=== PATIENT | male | born 1995 | race Caucasian/White ===

== ENCOUNTER 2017-06-13 11:45 | Inpatient (IN) | payer OTHER ==
[2017-06-13 12:15] LABS: HEMOGLOBIN 16.7 g/dl (14.0-18.0); MEAN CORPUSCULAR HEMOGLOBIN 31.5 pg (27.0-33.0); MEAN CORPUSCULAR HGB CONC 33.4 g/dl (32.0-36.5); MEAN CORPUSCULAR VOLUME 94.2 fl (80.0-96.0); PLATELET COUNT, AUTOMATED 232 10^3/uL (150-450); RED BLOOD COUNT 5.31 10^6/uL (4.30-6.10); RED CELL DISTRIBUTION WIDTH 13.1 % (11.5-14.5); WHITE BLOOD COUNT 9.3 10^3/uL (4.0-10.0)
[2017-06-13 12:52] LABS: ALBUMIN 4.3 GM/DL (3.2-5.2); ALBUMIN/GLOBULIN RATIO 1.19 (1.00-1.93); ALKALINE PHOSPHATASE 90 U/L (45-117); ALT/SGPT 84 U/L (12-78); ANION GAP 6 MEQ/L (8-16); AST/SGOT 40 U/L (7-37); BILIRUBIN,DIRECT 0.2 MG/DL (0.0-0.2); BILIRUBIN,TOTAL 0.6 MG/DL (0.2-1.0); BLOOD UREA NITROGEN 16 MG/DL (7-18); CALCIUM LEVEL 9.7 MG/DL (8.5-10.1); CARBON DIOXIDE LEVEL 29 MEQ/L (21-32); CHLORIDE LEVEL 106 MEQ/L (98-107); CREATININE FOR GFR 1.21 MG/DL (0.70-1.30); ETHYL ALCOHOL (ETHANOL) 0.004 % (0.000-0.010); GLOMERULAR FILTRATION RATE > 60.0 (>60); GLUCOSE, FASTING 80 MG/DL (70-100); POTASSIUM SERUM 4.4 MEQ/L (3.5-5.1); SALICYLATE LEVEL < 1.7 MG/DL (5.0-30.0); SODIUM LEVEL 141 MEQ/L (136-145); TOTAL PROTEIN 7.9 GM/DL (6.4-8.2)
[2017-06-13 13:05] LABS: AMPHETAMINES LEVEL URINE NEGATIVE (NEGATIVE); BARBITURATES URINE NEGATIVE (NEGATIVE); BENZODIAZEPINES URINE NEGATIVE (NEGATIVE); CANNABINOIDS URINE NEGATIVE (NEGATIVE); COCAINE METABOLITE URINE NEGATIVE (NEGATIVE); METHADONE URINE NEGATIVE (NEGATIVE); OPIATES URINE NEGATIVE (NEGATIVE); PHENCYCLIDINE URINE NEGATIVE (NEGATIVE)
[2017-06-13 13:12] LABS: ACETAMINOPHEN LEVEL < 2.0 UG/ML (10.0-30.0)
[2017-06-13] MEDS ORDERED: MOM 30ML SUSPENSION UDC PO (16:30)
[2017-06-13] MEDS ORDERED: ACETAMINOPHEN TAB 650MG DOSE (2X325MG) PO (16:30)
[2017-06-13] MEDS ORDERED: MAALOX 30 ML SUSP *UDC PO (16:30)
[2017-06-14 10:13] LABS: ALBUMIN 4.4 GM/DL (3.2-5.2); ALBUMIN/GLOBULIN RATIO 1.29 (1.00-1.93); ALKALINE PHOSPHATASE 93 U/L (45-117); ALT/SGPT 88 U/L (12-78); ANION GAP 7 MEQ/L (8-16); AST/SGOT 41 U/L (7-37); BILIRUBIN,TOTAL 0.7 MG/DL (0.2-1.0); BLOOD UREA NITROGEN 16 MG/DL (7-18); CALCIUM LEVEL 9.4 MG/DL (8.5-10.1); CARBON DIOXIDE LEVEL 31 MEQ/L (21-32); CHLORIDE LEVEL 102 MEQ/L (98-107); CREATININE FOR GFR 1.37 MG/DL (0.70-1.30); GLOMERULAR FILTRATION RATE > 60.0 (>60); GLUCOSE, FASTING 124 MG/DL (70-100); POTASSIUM SERUM 4.6 MEQ/L (3.5-5.1); SODIUM LEVEL 140 MEQ/L (136-145); TOTAL PROTEIN 7.8 GM/DL (6.4-8.2)
[2017-06-14] MEDS ORDERED: OLANZapine ORAL DISINTEGRATING TAB 5MG PO (13:00)
[2017-06-14] MEDS: SERTRALINE HCL 50 MG TAB PO (13:32)
[2017-06-14] MEDS: traZODone 50 MG TAB PO (20:36)
[2017-06-15] MEDS: SERTRALINE HCL 50 MG TAB PO (08:12)
[2017-06-15 11:06] LABS: HEPATITIS B SURFACE ANTIGEN NEGATIVE (NEGATIVE)
[2017-06-15 11:20] LABS: HEPATITIS B CORE ANTIBODY IGM NEGATIVE (NEGATIVE)
[2017-06-15 11:22] LABS: HEPATITIS A ANTIBODY IGM NEGATIVE (NEGATIVE)
[2017-06-15] MEDS: hydrOXYzine 50 MG TAB PO (21:00)
[2017-06-15] MEDS: traZODone 50 MG TAB PO (21:00)
[2017-06-16] MEDS: SERTRALINE HCL 50 MG TAB PO (08:19)
[2017-06-16] MEDS: THERAPEUTIC BATH LOTION 240 ML BTL TOP ×2 (18:00→20:41)
[2017-06-16] MEDS: traZODone 50 MG TAB PO (20:42)
[2017-06-16] MEDS: hydrOXYzine 50 MG TAB PO (20:42)
[2017-06-17] MEDS: SERTRALINE HCL 25 MG TABLET PO (08:47)
[2017-06-17] MEDS: THERAPEUTIC BATH LOTION 240 ML BTL TOP ×3 (08:48→21:00)
[2017-06-17] MEDS: traZODone 50 MG TAB PO (20:26)
[2017-06-18] MEDS: SERTRALINE HCL 25 MG TABLET PO (08:22)
[2017-06-18] MEDS: THERAPEUTIC BATH LOTION 240 ML BTL TOP ×3 (08:23→20:05)
[2017-06-18] MEDS: traZODone 50 MG TAB PO (20:04)
[2017-06-19] MEDS: SERTRALINE HCL 25 MG TABLET PO (08:37)
[2017-06-19] MEDS: THERAPEUTIC BATH LOTION 240 ML BTL TOP ×3 (08:37→21:53)
[2017-06-19] MEDS: traZODone 50 MG TAB PO (21:52)
[2017-06-20] MEDS: SERTRALINE HCL 25 MG TABLET PO (08:40)
[2017-06-20] MEDS: THERAPEUTIC BATH LOTION 240 ML BTL TOP ×3 (08:41→20:31)
[2017-06-20] MEDS: traZODone 50 MG TAB PO (20:31)
[2017-06-21] MEDS: SERTRALINE HCL 25 MG TABLET PO (09:21)
[2017-06-21] MEDS: THERAPEUTIC BATH LOTION 240 ML BTL TOP (09:22)
[2017-06-21] MEDS: EUCERIN 120GM CREAM TOP ×2 (11:29→20:49)
[2017-06-21] MEDS: traZODone 50 MG TAB PO (20:49)
[2017-06-22] MEDS: EUCERIN 120GM CREAM TOP ×2 (08:58→21:00)
[2017-06-22] MEDS: SERTRALINE HCL 25 MG TABLET PO (08:58)
[2017-06-22] MEDS: traZODone 50 MG TAB PO (21:31)
[2017-06-23] MEDS: SERTRALINE HCL 25 MG TABLET PO (08:15)
[2017-06-23] MEDS: EUCERIN 120GM CREAM TOP (08:15)
== END 2017-06-23 14:22 | disposition home or self-care (01) | DRG 885 ==
LOC: M ED 11:45 → M ED INP 16:28 → M PSY 18:08
DX: F33.2 Major depressive disorder, recurrent severe without psychotic features (principal); R45.851 Suicidal ideations; F43.9 Reaction to severe stress, unspecified; Z79.899 Other long term (current) drug therapy; R94.5 Abnormal results of liver function studies